=== PATIENT | female | born 1995 | race Caucasian/White ===

== ENCOUNTER 2016-12-20 19:08 | Emergency (ER) | payer MEDICAID ==
[2016-12-20 19:11] VITALS: BP 121/84
== END 2016-12-20 21:03 | disposition home or self-care (01) ==
LOC: ED 19:08
DX: S60.511A Abrasion of right hand, initial encounter (principal); Z88.1 Allergy status to other antibiotic agents; W22.8XXA Striking against or struck by other objects, initial encounter; Y93.89 Activity, other specified; Y92.89 Other specified places as the place of occurrence of the external cause; Y99.8 Other external cause status
CPT/HCPCS: 90715; A4570